=== PATIENT | female | born 1945 | race Caucasian/White ===

== ENCOUNTER 2020-07-23 14:28 | Outpatient (RCR) | payer OTHER, MEDICARE | END 2020-07-26 | LOC: PT 14:28 | PROVIDERS: ATTEND Physical Medicine & Rehabilitation ==

== ENCOUNTER → 2020-08-25 | Outpatient (RCR) | payer OTHER, MEDICARE | LOC: PT 08-06 15:08 → OT 08-09 07:19 → PT 08-11 14:07 → OT 08-23 14:11 → PT 13:59 → OT 14:13 | PROVIDERS: ATTEND Physical Medicine & Rehabilitation | DX: Z87.820 Personal history of traumatic brain injury (principal); M62.81 Muscle weakness (generalized); R26.9 Unspecified abnormalities of gait and mobility; R26.2 Difficulty in walking, not elsewhere classified ==

== ENCOUNTER 2020-09-02 12:54 | Outpatient (RCR) | payer OTHER, MEDICARE | END 2020-09-25 | LOC: OT 12:54 → PT 12:54 | PROVIDERS: ATTEND Physical Medicine & Rehabilitation | DX: S09.90XA Unspecified injury of head, initial encounter (principal); M62.81 Muscle weakness (generalized); R26.9 Unspecified abnormalities of gait and mobility; R26.2 Difficulty in walking, not elsewhere classified ==